=== PATIENT | female | born 1985 | race Caucasian/White ===

== ENCOUNTER 2024-09-16 15:49 | Emergency (ER) | payer BC, SELFPAY ==
--- OUTSIDE RECORDS SUMMARY | 2024-09-16 15:51 | XMS_ITS | Clinical Summary ---
Author Organization [facility] Address [address] [place] [address] Care Team Providers Care Supervisor [place] Name Role Phone Emma Chau MD Primary Care Prov ider Allergies Active Allergy Reactions Criticality Noted Date Comments Amoxicillin Yeast Infection Medications metroNIDAZOLE (METROGEL) 0.75 % gel 5 8 Active triamcinolone 0.1 % ointmentIndicat ions:Pityriasis rosea Apply topically to affected area(s) two times daily. 30 g 1 4 Active hydrOXYzine HCL (ATARAX) 25 mg tabletIndicatio ns:Pityriasis rosea Take 1 Tablet (25 mg) by mouth every 6 hours if needed for Itching. 30 Tablet 4 09/17/19 25 Discontinu ed(*Med complete/R egimen complete/L evel of care change) Active Problems Problem Noted Date Diagnosed Date Pap smear for cervical cancer screening 12/28/19 22 Overview (03/01/2022): 12/2021 NIL/HPV negative Plan: Pap/HPV due 12/2026 Placental abruption 02/01/2012 Spontaneous vaginal delivery 01/25/2012 PROM (premature rupture of membranes) 01/24/2012 Vitiligo 09/13/2011 Unspecified hemorrhage in early , antep artum 05/18/2011 Vitamin D deficiency 12/08/2010 Vitiligo 07/10/2009 Resolved Problems Problem Noted Date Diagnosed Date Resolved Date labor third trimeste r with delivery third trimester 01/25/2012 02/01/2012 Supervision of normal first 10/11/2011 02/01/2012 Morning sickness 08/22/2011 02/01/2012 DYSURIA 10/21/2003 11/04/2003 Encounters Date Type Department Care Team Description 09/16/2024 3:45 PM CDT Office Visit [facility] [address] [place] [address] Merary Glasgow PA Syncope 09/16/2024 Nurse Triage [facility] [address] [place] [address] Emma Chau MD Syncope 09/16/2024 Travel 09/16/2024 Telephone [facility] [address] [place] [address] Merary Glasgow PA Concerns (Near syncope?); Syncope from Last 3 Months Immunizations Immunization Administration Dates Next Due AMB Influenza, IIV4 PF (=>6 mos Flulaval,Fluzone Fluarix)(Flu Clinic Only) 04/04/2016 DT (Age < 7 years) 01/18/1989 DTP 12/13/1984, 4,1983,1982 HepA-HepB (Twinrix) 12/07/2010 Hepatitis B (Adult) 12/28/2005 Influenza, IIV3 (Age >=3 years) 01/24/2002 Influenza, IIV4 03/27/2021, 9,04/03/2018,2014,02/13/2014 MMR 04/26/1995,04/25/1984 Oral Polio Vaccine 01/18/1989, 5,1983,1982 Pneumococcal Poly,23-Valent (Pneumovax) 01/24/2002 Td (Age >=7 Years) 01/24/2002,10/17/1995 Tdap 12/28/2021,12/28/2005 Tuberculin (PPD) 11/11/2009,01/10/2006, 6 Family History Medical History Relation Name Comments Good Health Brother Cancer Father lymphoma Hyperlipidemia Mother Psychiatric illness Mother depressi on Thyroid Disease Mother Cancer Paternal Grandmother smoked when young Cancer-breast No Family History Cancer-colon No Family History Relation Name Status Comments Brother Father Mother Paternal Grandmother Social History Tobacco Use Types Packs/Day Years Used Date Smoking Tobacco: Never Smokeless Tobacco: Never Tobacco Cessation:Counseling Given: Yes Alcohol Use Standard Drinks/Week Comments No 0 (1 standard drink = 0.6 oz pur e alcohol) PHQ-2 Answer Date Recorded PHQ-2 TOTAL SCORE 0 12/28/2021 Social Connections Answer Date Recorded Do you often feel lonely or isolated from those around you? 0 09/29/2023 Financial Resource Strain Answer Date R ecorded Difficulty of Paying Living Expenses 3 09/29/2023 Difficulty of Paying Living Expenses Not on file 09/29/2023 Food Insecurity Answer Date Recorded Do you worry your food will run out before you are able to buy more? 1 09/29/2023 Transportation Needs Answer Date Record ed Does lack of transportation keep you from medica l appointments? 1 09/29/2023 Does lack of transportation keep you from work, meetings or getting things that you need? 1 09/29/2023 Housing Stability Answer Date Recorded What is your housing situation today? 1 09/29/2023 Utilities Answer Date Recorded Do you have trouble paying f or utilities (for example, heat, electricity, water, phone)? 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 Please review and update details. Last Filed Vital Signs Vital Sign Reading Time Taken Comments Blood Pressure 106/75 09/16/2024 2:56 PM CDT Pulse 97 09/16/2024 2:56 PM CDT Temperature 36.8 C (98.3 F) 01/11/2018 5:50 PM CDT Respiratory Rate 20 03/17/2012 4:20 PM CDT Oxygen Saturation 99% 09/16/2024 2:56 PM CDT Inhaled Oxygen Concentration - - Weight 55.5 kg (122 lb 6.4 oz) 09/29/2023 3:18 P M CDT Height 164.9 cm (5' 4.92) 09/29/2023 3:18 PM CD T Body Mass Index 20.42 09/29/2023 3:18 PM CDT Plan of Treatment Health Maintenance Due Date Last Done Comments Hepatitis C screening for age 18-79 2001 Depression screening for age 12+ 12/28/2022 12/28/2021, 02/28/2017, 12/31/2015 COVID-19 vaccine series ( season) 2024 03/27/2021, 08/08/2020, 07/11/2020 BMI (ht and wt on same day) for age 18+ 09/28/2024 09/29/2023, 12/28/2021, 01/11/2018, Additional history exists Influenza Vaccine (Season Ended) 2025 03/27/2021, 03/21/2019, 04/03/2018, Additional history exists Pap test for age 21-65 12/28/2026 , 12/28/2021, 12/31/2015, Additional history exists Tetanus booster 12/29/2031 12/28/2021, 06/2005, 01/24/2002, Additional history exists Pneumococcal series for age 6-49 Aged Out 01/24/2002 No longer eligible based on patient's age to complete this topic HIV for age 15-65 Completed 09/02/2011 Tdap Completed 12/28/2021, 12/28/2005 Procedures Procedure Name Priority Date/Time Associated Diagnosis Comments URINALYSIS MACROSCOPIC - [facility] ONLY POC DIP ([facility]) Routine 09/16/2024 3:11 PM CDT Urinary incontinence, unspecified type HPV HIGH RISK Routine 12/28/2021 8:00 AM CDT Cervical cancer screening ANTI HIV 1/2 Routine 09/02/2011 4:44 PM CDT Supervision of other normal (HC) from Last 3 Months or Most Recently Relevant to Health Maintenance Results * POCT Urinalysis Dipstick Only [[id number]] (09/16/2024 3:11 PM CDT) PH 7.5 5.0 - 8.0 [facility] SPECIFIC GRAVITY 1.015 1.001 - 1.035 [facility] GLUCOSE NEGATIVE NEGATIVE [facility] BILIRUBIN NEGATIVE NEGATIVE [facility] KETONES NEGATIVE NEGATIVE [facility] OCCULT BLOOD NEGATIVE NEGATIVE [facility] PROTEIN NEGATIVE NEGATIVE [facility] NITRITE NEGATIVE NEGATIVE [facility] LEUKOCYTE ESTERASE NEGATIVE NEGATIVE [facility] Urine URINE SPECIMEN / Unknown 09/16/2024 3:11 PM CDT 09/16/2024 3:11 PM CDT Merary DE LA TORRE URINE Final Result [facility] [address] [place] [address], [facility] [address] [place] [address] * HPV HIGH RISK (12/28/2021 8:00 AM CDT) TYPE 16 Negative Negative 12/30/2021 2:37 PM CDT [facility] TYPE 18 Negative Negative 12/30/2021 2:37 PM CDT [facility] TRAL LAB[facility] OTHER HIGH RISK TYPES Negative Negative 12/30/2021 2:37 PM CDT [facility] Other (Cervical/Vagina l) Non-Blood / Unknown 12/28/2021 8:00 AM CDT 12/28/2021 6:25 PM CDT Narrative [facility] - 12/30/2021 2:37 PM CDT HPV types 16, 18, 31, 33, 35, 39, 45, 51, 52, 56, 58, 59, 66 and 68 DNA were undetectable or below the pre-set threshold. Methodology: Dee Cindy 4800 HPV Test us Emma Chau MD MICROBIOLOGY Fi nal Result [facility] [address] [place] [address], * ANTI HIV 1/2 (09/02/2011 4:44 PM CDT) ANTI HIV 1/2 Non-reacti ve [facility] Blood specimen (specimen) BLOOD SPECIMEN / Unknown 09/02/2011 4:44 PM CDT 09/02/2011 4:32 PM CDT us Kaitlynn Kaplan NP SEND OUTS F inal Result [facility] INTERNAL ZIP [address] [place] [address] from Last 3 Months or Most Recently Relevant to Health Maintenance Insurance [employer]AY [id number] [facility] Advance Directives * Full Code (Latest Code Status on File) Date Activated Date Inactivated Comments 01/25/2012 2:40 PM 01/26/2012 4:35 PM * Full Code Date Activated Date Inactivated Comments 01/25/2012 2:37 PM 01/25/2012 2:40 PM * Full Code Date Activated Date Inactivated Comments 01/24/2012 2:21 PM 01/25/2012 1:34 PM Care Teams Supervisor [place] Relationship Specialty Start Date End Date Emma Chau MD [address] [place] [address] PCP - General Family Practice 01/24/12
[2024-09-16 16:02] VITALS: BP 130/85; PULSE 102; RESP 20; TEMP 36.9; O2SAT 99; BMI 22.0
--- NOTE | 2024-09-16 17:53 | ED_ITS ---
HPI - Syncope General Time Seen by Provider: 17:54 Date Seen: 09/16/24 Chief Complaint: Syncope/Fainted Stated Complaint: Fainting Episode all day Time Seen by Provider: 09/16/24 17:48 Source: patient, RN notes reviewed and old records reviewed Mode of arrival: ambulatory Limitations: no limitations History of Present Illness HPI narrative: 39-year-old female who comes in today with concern for almost passing out early this morning. Patient got up was getting ready for work, needed to go to the bathroom but spouse was in the bathroom, patient proceeded to continue to get ready but then became lightheaded, with some shortness of breath, ringing in the ears. She sat down and put her head down, does not think she passed out but did note that she had bladder incontinence. Since this episode she has felt a little shaky. No chest pain or palpitations prior to this, does feel little anxious since this episode. Did become nauseated during the episode but no vomiting, no diarrhea, and that is better. No abdominal pain. Patient does note she did not eat well yesterday. Related Data Home Medications ?Medication ?Instructions ?Recorded ?Confirmed cetirizine 10 mg capsule (Zyrtec) 10 mg PO DAILY PRN 09/16/24 09/16/24 Allergies Allergy/AdvReac Type Severity Reaction Status Date / Time amoxicillin AdvReac Verified 09/16/24 16:01 Exam Const: Vital Signs, click to edit/add: Vital Signs - 24 hr 09/16/24 16:02 Temperature 98.4 F Pulse Rate [Pulse Oximeter] 102 H Respiratory Rate 20 Blood Pressure [Ri ght Upper Arm] 130/85 Pulse Oximetry 99 Oxygen Delivery Me thod Room Air Course Course ED Course: Reviewed prior visit from earlier today which was the same pain, patient was referred to the emergency department clinic after normal exam with normal urinalysis. Patient presents today with what sounds like a near syncopal episode earlier today while up and walking. Did have urinary incontinence with this although needed to go to the bathroom prior to the episode. On exam here, patient is awake and alert, patient tachycardic on arrival but this is improved by the time I saw her. Vital is stable otherwise, EKG is reassuring. Will evaluate for other causes syncope including electrolyte disturbance, cardiac dysrhythmia, pulmonary embolism. EKG inability interpreted by me performed at 6:07 p.m. demonstrates sinus rhythm with sinus arrhythmia rate 73, QRS 72, QTC 431, MT 110, no acute ischemic alberto es, normal intervals, normal axis. Reevaluation(s) Time of Reevaluation #1: 19:17 Reevaluation #1: Labs independently interpreted by me with normal CBC, negative D-dimer, normal basic panel, negative troponin, normal urinalysis. Vital Signs Vital signs: Initial Vital Signs Temperature 98.4 F 09/16/24 16:02 Temperature Source Temporal Artery Scan 09/16/24 16:02 Pulse Rate 102 H 09/16/24 16:02 Respiratory Rate 20 09/16/24 16:02 Blood Pressure 130/85 09/16/24 16:02 Blood Pressure Mean 100 09/16/24 16:02 Pulse Oximetry 99 09/16/24 16:02 Oxygen Delivery Method Room Air 09/16/24 16:02 Vital Signs Temperature 98.4 F 09/16/24 16:02 Pulse Rate 102 H 09/16/24 16:02 Respiratory Rate 20 09/16/24 16:02 Blood Pressure 130/85 09/16/24 16:02 Pulse Oximetry 99 09/16/24 16:02 Oxygen Delivery Method Room Air 09/16/24 16:02 Temperature 98.4 F 09/16/24 16:02 Pulse Rate 102 H 09/16/24 16:02 Respiratory Rate 20 09/16/24 16:02 Blood Pressure 130/85 09/16/24 16:02 Pulse Oximetry 99 09/16/24 16:02 Oxygen Delivery Method Room Air 09/16/24 16:02 Medications Administered Medications: Discontinued Medications Generic Name Dose Route Start Last Admin Trade Name Freq PRN Reason Stop Dose Admin Sodium Chloride 500 mls @ 500 mls/hr 09/16/24 17:56 09/16/24 19:06 0.9 % Sodium Chloride 500 Ml IV 09/16/24 18:55 500 mls/hr .Q1H ONE Administration MDM - Syncope Lab Data Labs: Lab Results 09/16/24 09/16/24 Range/Units 17:39 18:10 WBC 6.99 (4.50-11.00) K/uL RBC 4.38 (4.00-5.20) m/uL Hgb 13.4 (12.0-16.0) gm/dL Hct 39.3 (33.0-51.0) % MCV 90 (80-100) fL MCH 31 (26-34) pg MCHC 34 (32-36) gm/dL RDW Coeff of Sreedhar 11.9 (11.5-15.5) % Plt Count 236 (140-440) K/uL Neut % (Auto) 62.2 (42.0-72.0) % Lymph % (Auto) 29.6 (20-44) % [place] % (Auto) 7.2 (0.0-11.0) % Eos % (Auto) 0.4 (0.0-7.0) % Baso % (Auto) 0.6 (0.0-3.0) % Neut # (Auto) 4.35 (1.7-7.0) K/uL Lymph # (Auto) 2.07 (0.90-2.90) K/uL [place] # (Auto) 0.50 (0.00-0.90) K/UL Eos # (Auto) 0.03 (0.00-0.50) K/uL Baso # (Auto) 0.04 (0.00-0.30) K/uL Abs Immat Gran (auto) 0.00 (0.00-0.30) K/uL Imm/Tot Granulo (auto) 0.0 % D-Dimer Quant (PE/DVT) < 0.27 (0.00-0.50) ug/ml Sodium 137 (135-149) mmol/L Potassium 4.0 (3.6-5.1) mmol/L Chloride 104 (96-114) mmol/L Carbon Dioxide 26 (20-32) mmol/L Anion Gap 7 (7-15) mEq/L BUN 9 (5-24) mg/dL Creatinine 0.7 (0.5-1.5) mg/dL Estimated Creat Clear 87.49 Estimated GFR 111 ml/min Glucose 100 (60-115) mg/dL Calcium 9.3 (8.4-10.6) mg/dL Magnesium 2.0 (1.5-2.6) mg/dL Urine Color Yellow (Yellow) Urine Appearance Clear (Clear) Urine pH 6.5 (5.0-8.5) Ur Specific [place] 1.025 (1.000-1.030) Urine Protein Negative (Negative) Urine Glucose (UA) Negative (Negative) Urine Ketones Trace A (Negative) Urine Blood Trace-intact A (Negative) Urine Nitrite Negative (Negative) Urine Bilirubin Negative (Negative) Urine Urobilinogen 0.2 (0.2-1.0) Ur Leukocyte Esterase Negative (Negative) Urine RBC 0-2 (0-2) Urine WBC 5-10 A (0-5) Ur Squamous Epith Cells Few (None-Few) Urine Bacteria Moderate A (None) Urine HCG, Qual Negative (Negative) Discharge Plan Discharge Clinical Impression: Near syncope Patient Disposition: Home, Self-Care Instructions: Near Syncope (ED) Additional Instructions: Follow-up with primary care this week for re-evaluation. Make sure your getting plenty fluids, plenty of rest in the next 24 hours. Activity Level: Activity as Tolerated Discharge Diet: Regular Prescriptions: No Action Zyrtec 10 mg capsule 10 mg PO DAILY PRN Stand Alone Forms: MyHealth Info Instructions
[2024-09-16 18:25] LABS: Basophils Absolute Auto 0.04 K/uL (0.00-0.30); Basophils Percent Auto 0.6 % (0.0-3.0); Eosinophils Absolute Auto 0.03 K/uL (0.00-0.50); Eosinophils Percent Auto 0.4 % (0.0-7.0); Hematocrit 39.3 % (33.0-51.0); Hemoglobin* 13.4 gm/dL (12.0-16.0); Lymphocytes Absolute Auto 2.07 K/uL (0.90-2.90); Lymphocytes Percent Auto 29.6 % (20-44); Mean Corpuscular HGB Conc 34 gm/dL (32-36); Mean Corpuscular Hemoglobin 31 pg (26-34); Mean Corpuscular Volume 90 fL (80-100); Monocytes Percent Auto 7.2 % (0.0-11.0); Neutrophils Absolute Auto 4.35 K/uL (1.7-7.0); Neutrophils Percent Auto 62.2 % (42.0-72.0); Platelet Count* 236 K/uL (140-440); RDW Coefficient of Variation % 11.9 % (11.5-15.5); Red Blood Count 4.38 m/uL (4.00-5.20); Slide Review Reflex No; White Blood Count* 6.99 K/uL (4.50-11.00)
[2024-09-16 18:35] LABS: Appearance Urine Clear (Clear); Bilirubin Urine Negative (Negative); Blood Urine Trace-intact (Negative); Color Urine Yellow (Yellow); Glucose Urine Negative (Negative); Ketones Urine Trace (Negative); Leukocyte Esterase Urine Negative (Negative); Nitrite Urine Negative (Negative); Protein Urine Negative (Negative); Specific Gravity Urine 1.025 (1.000-1.030); Urobilinogen Urine 0.2 (0.2-1.0); pH Urine 6.5 (5.0-8.5)
[2024-09-16 18:37] LABS: Chloride* 104 mmol/L (96-114)
[2024-09-16 18:38] LABS: Sodium* 137 mmol/L (135-149)
[2024-09-16 18:39] LABS: Ur HCG Qualitative* Negative (Negative)
[2024-09-16 18:40] LABS: Blood Urea Nitrogen* 9 mg/dL (5-24); Creatinine* 0.7 mg/dL (0.5-1.5); Est. Creatinine Clearance* 87.49; Estimated Glomerular Filt Rate 111 ml/min
[2024-09-16 18:41] LABS: Anion Gap 7 mEq/L (7-15); Calcium* 9.3 mg/dL (8.4-10.6); Carbon Dioxide* 26 mmol/L (20-32); Glucose* 100 mg/dL (60-115)
--- OUTSIDE RECORDS SUMMARY | 2024-09-16 18:45 | XMS_ITS | Clinical Summary ---
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 Name Role Phone Emma Chau MD Primary [...] Description 09/16/2024 3:45 PM CDT Office Visit [facility] [address] [facility] [place] [address] Merary Glasgow PA Syncope 09/16/2024 Nurse Triage [facility] [address] [place] [address] Emma Chau MD Syncope 09/16/2024 Travel 09/16/2024 Telephone [facility] [address] [place] [address] Merary Glasgow PA Concerns (Near syncope?); Syncope [...] on file 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 Gender Identity Not on file Sexual Orientation [...] Maintenance Results * POCT Urinalysis Dipstick Only [[id number]] (09/16/2024 3:11 PM CDT) PH 7.5 5.0 - 8.0 [facility] SPECIFIC GRAVITY 1.015 1.001 - 1.035 [facility] GLUCOSE NEGATIVE NEGATIVE [facility] BILIRUBIN NEGATIVE NEGATIVE [facility] KETONES NEGATIVE NEGATIVE [facility] OCCULT BLOOD NEGATIVE NEGATIVE [facility] PROTEIN NEGATIVE NEGATIVE [facility] NITRITE NEGATIVE NEGATIVE [facility] LEUKOCYTE ESTERASE NEGATIVE NEGATIVE [facility] Urine URINE SPECIMEN / Unknown 09/16/2024 3:11 PM CDT 09/16/2024 3:11 PM CDT Merary DE LA TORRE URINE Final Result [email or web address] [address] [place] [address], [facility] [address] [place] [address] * HPV HIGH RISK (12/28/2021 8:00 AM CDT) TYPE 16 Negative Negative 12/30/2021 2:37 PM CDT [facility] TYPE 18 Negative Negative 12/30/2021 2:37 PM CDT [facility] TRAL LABORATORY OTHER HIGH RISK TYPES Negative Negative 12/30/2021 2:37 PM CDT [facility] Other (Cervical/Vagina l) Non-Blood / Unknown 12/28/2021 8:00 AM CDT 12/28/2021 6:25 PM CDT Narrative [facility] - 12/30/2021 2:37 PM CDT HPV types 16, 18, 31, 33, 35, 39, 45, 51, 52, 56, 58, 59, 66 and 68 DNA were undetectable or below the pre-set threshold. Methodology: Dee Cindy 4800 HPV Test us Emma Chau MD MICROBIOLOGY Fi nal Result [facility] [address] [place] [address], * ANTI HIV 1/2 (09/02/2011 4:44 PM CDT) ANTI HIV 1/2 Non-reacti ve [facility] Blood specimen (specimen) BLOOD SPECIMEN / Unknown 09/02/2011 4:44 PM CDT 09/02/2011 4:32 PM CDT us Kaitlynn Kaplan NP SEND OUTS F inal Result [facility] INTERNAL ZIP [address] [place] [address] from Last 3 Months or Most Recently Relevant to Health Maintenance Insurance [employer] [id number] [facility] Advance Directives * Full Code (Latest Code Status on File) Date Activated Date Inactivated Comments 01/25/2012 2:40 PM 01/26/2012 4:35 PM * Full Code Date Activated Date Inactivated Comments 01/25/2012 2:37 PM 01/25/2012 2:40 PM * Full Code Date Activated Date Inactivated Comments 01/24/2012 2:21 PM 01/25/2012 1:34 PM Care Teams Marriage And Family Teacher Relationship Specialty Start Date End Date Emma Chau MD [address] [place] [address] PCP - General Family Practice 01/24/12
[2024-09-16 18:46] LABS: Bacteria Urine Moderate; RBC Urine 0-2 (0-2); Squamous Epithelial Cell Urine Few (None-Few)
[2024-09-16] MEDS: 0.9 % SODIUM CHLORIDE 500 ML 500 ML IV (19:06)
[2024-09-16 19:08] LABS: D Dimer Quantitative* < 0.27 ug/ml (0.00-0.50)
[2024-09-16 19:28] VITALS: BP 102/69; BP 102/77; BP 107/65; PULSE 79; PULSE 90; PULSE 91
== END 2024-09-16 19:35 | disposition home or self-care (01) ==
PROVIDERS: Emergency Provider Family Medicine
DX: R55 Syncope and collapse (principal)
CPT/HCPCS: 36415; 80048; 81001; 81025; 83735; 84484; 85025; 85379; 87086; 93005; 99284; J7030

== ENCOUNTER 2024-12-28 13:24 | Outpatient (CLI) | payer BC, SELFPAY | END 2024-12-28 13:25 | disposition home or self-care (01) | LOC: NFLDREF 01-01 12:41 | PROVIDERS: Visit Provider Physician Assistant Surgical | DX: N30.90 Cystitis, unspecified without hematuria (principal) | CPT/HCPCS: 87086 ==

== ENCOUNTER 2025-05-16 09:35 | Outpatient (CLI) | payer BC, SELFPAY ==
--- NOTE | 2025-05-16 10:55 | P.ANES_ITS ---
Anesthesia Charges Start Date/Time Anesthesia Start Date: 05/16/25 Anesthesia Start Time: 10:23 Stop Date/Time Anesthesia Stop Date: 05/16/25 Anesthesia Stop Time: 10:52 Coding CPT Codes CPT Codes: GILES LWR INTST NDND NOS - 02522 ([id number]) P1 - NORMAL HEALTHY PATIENT, QK - DIVIDING MACHINE OPERATOR 2-4 CNCRNT ANES PROC, QX - SENIOR INTEGRATION ARCHITECT SVC W/ MED DIRECTION
--- NOTE | 2025-05-16 10:55 | W.ANESCHARGE ---
Anesthesia Charges Start Date/Time Anesthesia Start Date: 05/16/25 Anesthesia Start Time: 10:23 Stop Date/Time Anesthesia Stop Date: 05/16/25 Anesthesia Stop Time: 10:52 Coding CPT Codes CPT Codes: GILES LWR INTST NDDC NOS - 79136 ([id number]) P1 - NORMAL HEALTHY PATIENT, QK - DISABILITY SPECIALIST 2-4 CNCRNT ANES PROC, QX - STANDPIPE TENDER SVC W/ MED DIRECTION
--- NOTE | 2025-05-16 11:47 | P.ANES_ITS ---
Anesthesia Charges Start Date/Time Anesthesia Start Date: 05/16/25 Anesthesia Start Time: 10:23 Stop Date/Time Anesthesia Stop Date: 05/16/25 Anesthesia Stop Time: 10:52 Coding CPT Codes CPT Codes: GILES LWR INTST NDMI NOS - 54081 ([id number]) P1 - NORMAL HEALTHY PATIENT, QK - SOFT TILE SETTER 2-4 CNCRNT ANES PROC, QX - JOURNEYMAN CARPENTER SVC W/ MED DIRECTION
--- NOTE | 2025-05-16 11:47 | W.ANESCHARGE ---
Anesthesia Charges Start Date/Time Anesthesia Start Date: 05/16/25 Anesthesia Start Time: 10:23 Stop Date/Time Anesthesia Stop Date: 05/16/25 Anesthesia Stop Time: 10:52 Coding CPT Codes CPT Codes: GILES LWR INTST NDAZ NOS - 42526 ([id number]) P1 - NORMAL HEALTHY PATIENT, QK - QA SOFTWARE TESTER 2-4 CNCRNT ANES PROC, QX - INSTALLMENT AGENT SVC W/ MED DIRECTION
== END 2025-05-16 09:36 | disposition home or self-care (01) ==
LOC: OP CLINIC 09:36
PROVIDERS: PCP Family Medicine; Visit Provider Internal Medicine Gastroenterology
DX: K62.89 Other specified diseases of anus and rectum (principal); K92.1 Melena; D12.2 Benign neoplasm of ascending colon
CPT/HCPCS: 00811; 45380; J2704